=== PATIENT | female | born 1995 | race Caucasian/White ===

== ENCOUNTER → 2016-12-06 | Outpatient (REF) | payer OTHER ==
[~2016-12-06] MED LIST: MOTR200T44 PO; PERC5TAB6 PO; STUACAP PO
== END ==
LOC: M LAB REF 15:04
PROVIDERS: ATTEND Advanced Practice Midwife
DX: Z12.4 Encounter for screening for malignant neoplasm of cervix (principal)

== ENCOUNTER → 2018-09-09 | Outpatient (REF) | payer OTHER ==
[2018-09-09 13:04] LABS: ALBUMIN 4.1 GM/DL (3.2-5.2); ALBUMIN/GLOBULIN RATIO 1.32 (1.00-1.93); ALKALINE PHOSPHATASE 99 U/L (45-117); ALT/SGPT 27 U/L (12-78); ANION GAP 7 MEQ/L (8-16); AST/SGOT 9 U/L (7-37); BILIRUBIN,TOTAL 0.7 MG/DL (0.2-1.0); BLOOD UREA NITROGEN 14 MG/DL (7-18); CALCIUM LEVEL 9.8 MG/DL (8.5-10.1); CARBON DIOXIDE LEVEL 27 MEQ/L (21-32); CHLORIDE LEVEL 105 MEQ/L (98-107); CHOLESTEROL LEVEL 158 MG/DL (<200); CHOLESTEROL RISK RATIO 5.448 (<5); CREATININE FOR GFR 0.74 MG/DL (0.55-1.30); FREE T4 1.46 NG/DL (0.76-1.46); GLOMERULAR FILTRATION RATE > 60.0 (>60); GLUCOSE, FASTING 104 MG/DL (70-100); HDL CHOLESTEROL 29 MG/DL (>40); LDL CHOLESTEROL 96 MG/DL (<100); NON-HDL-C 129 MG/DL; POTASSIUM SERUM 4.1 MEQ/L (3.5-5.1); SODIUM LEVEL 139 MEQ/L (136-145); TOTAL PROTEIN 7.2 GM/DL (6.4-8.2); TRIGLYCERIDES LEVEL 163 MG/DL (<150)
== END ==
LOC: M SFHCADAM 08:03
DX: F32.9 Major depressive disorder, single episode, unspecified (principal); F41.9 Anxiety disorder, unspecified; E66.01 Morbid (severe) obesity due to excess calories; E78.1 Pure hyperglyceridemia
CPT/HCPCS: 84443

== ENCOUNTER → 2018-09-09 | Outpatient (CLI) | payer OTHER | LOC: M ADAMS 10:20 | DX: F32.9 Major depressive disorder, single episode, unspecified (principal); F41.9 Anxiety disorder, unspecified; E66.01 Morbid (severe) obesity due to excess calories; E78.1 Pure hyperglyceridemia ==

== ENCOUNTER → 2018-11-19 | Outpatient (REF) | payer OTHER ==
[~2018-11-19] MED LIST changes: +PERC5TAB12 PO; -PERC5TAB6 PO
--- NOTE | 2018-11-20 04:07 | REP ---
Clinical: Lumbago Technique: AP, lateral, flexion/extension, bilateral oblique, and coned-down views. Findings: Alignment is maintained. Straightening of normal lordosis may be secondary to positioning versus pain/spasm. The vertebral bodies including transverse process and spinous processes are intact and normal. There is no evidence for acute fracture / compression injury or subluxation. No evidence for spondylolysis or spondylolisthesis. No significant degenerative change is noted. Impression: Essentially normal lumbosacral spine radiograph series. Electronically Signed by Marco A Chaves MD 11/20/2018 03:58 A
== END ==
LOC: M ADAMS 08:48
PROVIDERS: ATTEND Physician Assistant
DX: M54.41 Lumbago with sciatica, right side (principal); G89.29 Other chronic pain

== ENCOUNTER → 2018-11-20 | Outpatient (REF) | payer OTHER | LOC: M SFHCPLAZ 17:20 | PROVIDERS: ATTEND Dermatology | DX: D22.39 Melanocytic nevi of other parts of face (principal); D22.62 Melanocytic nevi of left upper limb, including shoulder ==

== ENCOUNTER → 2018-12-16 | Outpatient (REF) | payer OTHER | LOC: M LAB REF 13:28 | PROVIDERS: ATTEND Advanced Practice Midwife | DX: Z12.4 Encounter for screening for malignant neoplasm of cervix (principal) ==

== ENCOUNTER → 2019-01-06 | Outpatient (REF) | payer OTHER ==
[2019-01-06 14:12] LABS: HEMOGLOBIN A1c 5.9 %
== END ==
LOC: M SFHCADAM 07:43
PROVIDERS: ATTEND Physician Assistant
DX: L83 Acanthosis nigricans (principal)

== ENCOUNTER → 2019-01-07 | Outpatient (CLI) | payer OTHER ==
[~2019-01-07] MED LIST changes: +PROHANCE 279.3MG/ML 15ML VIAL (A9576) As Ordered ONE; +PROHANCE 279.3MG/ML 5ML VIAL (A9576) As Ordered ONE
--- NOTE | 2019-01-07 12:44 | REP ---
MR BRAIN WITHOUT AND WITH CONTRAST: HISTORY: Migraine headaches. CONTRAST: ProHance 20 mL. There are no areas of abnormal signal intensity in the brain. There is no intraparenchymal hemorrhage, infarct, mass, or midline shift. There is no abnormal enhancement. The ventricular system is normal in appearance. There is no extracerebral collection. Mucosal thickening is present in the left sphenoid sinus. IMPRESSION: There is no intracranial lesion. Electronically Signed by Manohar Sanford MD 01/07/2019 01:02 P
== END ==
LOC: M RAD 11:19
PROVIDERS: ATTEND Physician Assistant
DX: G43.709 Chronic migraine without aura, not intractable, without status migrainosus (principal)
CPT/HCPCS: 70553; A9576

== ENCOUNTER → 2019-09-09 | Outpatient (CLI) | payer OTHER ==
[~2019-09-09] MED LIST changes: -PROHANCE 279.3MG/ML 15ML VIAL (A9576) As Ordered ONE; -PROHANCE 279.3MG/ML 5ML VIAL (A9576) As Ordered ONE
--- NOTE | 2019-09-09 11:30 | REP ---
Clinical: Left heel pain. Technique: AP, lateral, bilateral oblique views of the left foot. Findings: Lateral view demonstrates small to moderate calcaneal heal spur. No periarticular or soft tissue calcifications are identified. Remainder examination is normal for age. Impression: Small/moderate calcaneal heal spur. Electronically Signed by Marco A Chaves MD 09/09/2019 11:22 A
== END ==
LOC: M ADAMS 10:52
PROVIDERS: ATTEND Physician Assistant
DX: M72.2 Plantar fascial fibromatosis (principal); M77.32 Calcaneal spur, left foot

== ENCOUNTER → 2019-09-09 | Outpatient (REF) | payer OTHER ==
[2019-09-09 12:53] LABS: ALBUMIN 3.7 GM/DL (3.2-5.2); ALT/SGPT 23 U/L (12-78); BILIRUBIN,TOTAL 0.3 MG/DL (0.2-1.0); BLOOD UREA NITROGEN 12 MG/DL (7-18); CALCIUM LEVEL 9.3 MG/DL (8.5-10.1); CARBON DIOXIDE LEVEL 25 MEQ/L (21-32); CHLORIDE LEVEL 110 MEQ/L (98-107); CHOLESTEROL LEVEL 168 MG/DL (<200); CREATININE FOR GFR 0.68 MG/DL (0.55-1.30); FREE T4 1.14 NG/DL (0.76-1.46); GLOMERULAR FILTRATION RATE > 60.0 (>60); GLUCOSE, FASTING 102 MG/DL (70-100); HDL CHOLESTEROL 35 MG/DL (>40); LDL CHOLESTEROL 97 MG/DL (<100); NON-HDL-C 133 MG/DL; POTASSIUM SERUM 4.1 MEQ/L (3.5-5.1); SODIUM LEVEL 140 MEQ/L (136-145); TOTAL PROTEIN 7.2 GM/DL (6.4-8.2); TRIGLYCERIDES LEVEL 178 MG/DL (<150)
== END ==
LOC: M SFHCADAM 10:44
PROVIDERS: ATTEND Physician Assistant
DX: M72.2 Plantar fascial fibromatosis (principal); F41.1 Generalized anxiety disorder; E78.1 Pure hyperglyceridemia; E66.01 Morbid (severe) obesity due to excess calories

== ENCOUNTER → 2020-03-20 | Outpatient (CLI) | payer OTHER ==
[2020-03-20 09:18] LABS: FREE T4 1.31 NG/DL (0.76-1.46); THYROID STIMULATING HORMONE 1.21 uIU/ML (0.358-3.740)
[2020-03-20 09:19] LABS: HEMOGLOBIN A1c 7.5 %
== END ==
LOC: M LAB 07:56
PROVIDERS: ATTEND Advanced Practice Midwife
DX: R63.5 Abnormal weight gain (principal)

== ENCOUNTER → 2020-10-19 | Outpatient (REF) | payer OTHER ==
[2020-10-20 13:40] LABS: HEMOGLOBIN A1c 6.3 %
[2020-10-20 13:51] LABS: ALBUMIN 3.5 GM/DL (3.2-5.2); ALT/SGPT 33 U/L (12-78); BILIRUBIN,TOTAL 0.2 MG/DL (0.2-1.0); BLOOD UREA NITROGEN 12 MG/DL (7-18); CALCIUM LEVEL 9.2 MG/DL (8.5-10.1); CARBON DIOXIDE LEVEL 27 MEQ/L (21-32); CHLORIDE LEVEL 105 MEQ/L (98-107); CREATININE FOR GFR 0.79 MG/DL (0.55-1.30); GLOMERULAR FILTRATION RATE > 60.0 (>60); GLUCOSE, FASTING 99 MG/DL (70-100); POTASSIUM SERUM 5.3 MEQ/L (3.5-5.1); SODIUM LEVEL 138 MEQ/L (136-145)
[2020-10-20 14:28] LABS: MAU/CREAT RATIO 307.1 MCG/MG (0.0-30.0)
== END ==
LOC: M SFHCADAM 15:06
PROVIDERS: ATTEND Physician Assistant
DX: I10 Essential (primary) hypertension (principal); E11.9 Type 2 diabetes mellitus without complications

== ENCOUNTER → 2021-07-11 | Outpatient (REF) | payer OTHER ==
[~2021-07-11] MED LIST changes: +ACET-897 PO; +CYCL-707; +FLUTISP; +IBUP-1857 PO; +IBUP80TA PO; +LEXA1TAB2 PO; +LISI10TA22; +LORA-674; +STEG15TA PO
[2021-07-11 14:47] LABS: MALB URINE SIEMENS 46.5 MG/L
[2021-07-11 15:00] LABS: ALBUMIN 3.6 GM/DL (3.2-5.2); ALT/SGPT 34 U/L (12-78); BILIRUBIN,TOTAL 0.4 MG/DL (0.2-1.0); BLOOD UREA NITROGEN 10 MG/DL (7-18); CARBON DIOXIDE LEVEL 26 MEQ/L (21-32); CHLORIDE LEVEL 107 MEQ/L (98-107); CHOLESTEROL LEVEL 179 MG/DL (<200); CREATININE FOR GFR 0.71 MG/DL (0.55-1.30); FREE T4 1.08 NG/DL (0.76-1.46); GLOMERULAR FILTRATION RATE > 60.0 (>60); GLUCOSE, FASTING 93 MG/DL (70-100); HDL CHOLESTEROL 38 MG/DL (>40); LDL CHOLESTEROL 116 MG/DL (<100); NON-HDL-C 141 MG/DL; POTASSIUM SERUM 4.6 MEQ/L (3.5-5.1); SODIUM LEVEL 138 MEQ/L (136-145); THYROID STIMULATING HORMONE 0.925 uIU/ML (0.358-3.740); TRIGLYCERIDES LEVEL 127 MG/DL (<150)
[2021-07-11 15:16] LABS: HEMOGLOBIN A1c 5.8 %
== END ==
LOC: M SFHCADAM 08:17
PROVIDERS: ATTEND Physician Assistant
DX: E11.9 Type 2 diabetes mellitus without complications (principal); E78.1 Pure hyperglyceridemia; E04.9 Nontoxic goiter, unspecified

== ENCOUNTER 2021-07-16 12:27 | Emergency (ER) | payer OTHER ==
[~2021-07-16] VITALS: Ht 157.5 cm; Wt 124.1 kg
[~2021-07-16 12:27] MED LIST changes: -ACET-897 PO; -CYCL-707; -FLUTISP; -IBUP-1857 PO; -IBUP80TA PO; -LEXA1TAB2 PO; -LISI10TA22; -LORA-674; -STEG15TA PO
[2021-07-16] MEDS ORDERED: IBUP-1857 PO (12:43)
[2021-07-16] MEDS ORDERED: LORA-674 (12:43)
[2021-07-16] MEDS ORDERED: CYCL-707 (12:43)
[2021-07-16] MEDS ORDERED: STEG15TA PO (12:43)
[2021-07-16] MEDS ORDERED: LEXA1TAB2 PO (12:43)
[2021-07-16] MEDS ORDERED: LISI10TA22 (12:43)
[2021-07-16] MEDS ORDERED: FLUTISP (12:43)
[2021-07-16] MEDS ORDERED: IBUP80TA PO (14:24)
[2021-07-16] MEDS ORDERED: ACET-897 PO (14:24)
[2021-07-16 14:40] VITALS: BP 124/83
== END 2021-07-16 14:40 | disposition home or self-care (01) ==
LOC: M ED 12:27
DX: M54.5 Low back pain (principal); J30.89 Other allergic rhinitis; F41.9 Anxiety disorder, unspecified; F32.9 Major depressive disorder, single episode, unspecified

== ENCOUNTER → 2021-10-10 | Outpatient (CLI) | payer OTHER ==
[~2021-10-10] MED LIST changes: +ACET-897 PO; +CYCL-707; +FLUTISP INH; +IBUP-1857 PO; +IBUP80TA PO; +LEXA1TAB2 PO; +LISI10TA22 PO; +LORA-674 PO; +STEG15TA PO
== END ==
LOC: M LABSMTC 10:19
PROVIDERS: ATTEND Anesthesiology
DX: Z01.812 Encounter for preprocedural laboratory examination (principal); Z20.822 Contact with and (suspected) exposure to COVID-19

== ENCOUNTER 2021-10-15 06:14 | Day surgery (SDC) | payer OTHER ==
[~2021-10-15] VITALS: Ht 160 cm; Wt 125.6 kg
[~2021-10-15 06:14] MED LIST changes: +LR 1,000 ML IV ONE
--- OUTSIDE RECORDS SUMMARY | 2021-10-15 06:26 | CCD ---
Author Author [facility] Organization [facility] Address Unknown Phone Unavailable Care Team Providers Care Sweeper Operator Highways Name Role Phone Brittany Payne Unavailable PROBLEMS Type Condition ICD9-CM Code KWT20-WK Code Onset Dates Condition S tatus W/U Status Risk SNOMED Code Notes Problem Chronic tension-type headache, not intractable G44 .229 Active confirmed 891986137 Problem Morbid obesity E66.01 Active confirmed 92540 6002 Problem Major depressive disorder, single episode, unspecified F32.9 Active confirmed 29445838 Problem Anxiety disorder, unspecified F41.9 Active confirm ed 09833883 Problem Generalized anxiety disorder F41.1 Active confirme d 82639480 Problem Persistent depressive disorder F34.1 Active confir med 65084486 Problem Panic disorder F41.0 Active confirmed 46655 1005 Problem Acanthosis nigricans L83 Active confirmed 440817555 Problem Daytime somnolence R40.0 Active confirmed 1 73739825368 Problem Chronic migraine G43.709 Active confirmed 37 368914 Problem Non-seasonal allergic rhinitis, unspecified trigger J30.89 Active confirmed 54963782 Problem Essential hypertension I10 Active confirmed 60920386 Problem Lumbago with sciatica, right side M54.41 Active confirmed 117648243 Problem Enlarged thyroid gland E04.9 Active confirmed 2205189 Problem Other chronic pain G89.29 Active confirmed 8 7728753 Problem Hypertriglyceridemia E78.1 Active confirmed 463040380 Problem Seasonal allergic rhinitis, unspecified trigger J3 0.2 Active confirmed 346917257 Problem Depressed mood F32.9 Active confirmed 97351 9004 Problem Chronic fatigue R53.82 Active confirmed 5270 2002 Problem Type 2 diabetes mellitus wit hout complication, without long-term current use of insulin E11.9 Active confirmed 681744856 ALLERGIES No Known Allergies ENCOUNTERS from 1993 to 2021-09-05 Encounter Location Date Provider Diagnosis [facility] [address] [facility] [phone] [place] [address] Jul, Brittany Payne Encounter for other general counseling and advice on contraception Z30.09 IMMUNIZATIONS Vaccine Route Administration Date Status Influenza 18 yrs & older Flublok IM Intramuscular Sep 09, 2019 Administered Depo-Provera 150mg/1mL Medroxy-Progestrone Acetate IM Intram uscular January 12, 2020 Administered Depo-Provera 150mg/1mL Medroxy-Progestrone Acetate IM Intram uscular Oct 19, 2019 Administered SOCIAL HISTORY Tobacco Use: Social History Observation Description Date Details (start date - stop date) Never Smoker Sex Assigned At : Social History Observation Description Sex Assigned At Unknown Education: Question Answer Notes Level of Education: Finished High School Language: Question Answer Notes Languages spoken: Bahamian Domestic Violence: Question Answer Notes Status: Sexual Hx: Question Answer Notes Had sex in the last 12 months (vaginal, oral, or anal)? Yes LMP: depo Have you ever had an STD? No with Men only Use protection? Yes How often? Some of the time Alcohol Screening: Question Answer Notes Did you have a drink containing alcohol in the past year? Ye s Points 1 Interpretation Negative How often did you have six or more drinks on one occas ion in the past year? Never (0 points) How many drinks did you have on a typica l day when you were drinking in the past year? 1 or 2 (0 points) How often did you have a drink containing alcohol in t he past year? Monthly or less (1 point) BMI Care Goal Follow-Up Question Answer Notes Above Normal BMI Follow-Up Dietary management educatio n, guidance, and counseling Tobacco Use: Question Answer Notes Are you a: never smoker never smoker REASON FOR REFERRAL No Information VITAL SIGNS Weight 273 lbs Jul, Weight-kg 123.83 kg Jul, Height 62.5 in Jul, BMI 49.13 kg/m2 Jul, Blood pressure systolic 118 mm Hg Jul, Blood pressure diastolic 78 mm Hg Jul, MEDICATIONS Medication SIG (Take, Route, Frequency, Duration) Notes Start Da te End Date Status Lisinopril 10 MG 1 tablet Orally Once a day for 90 days Active Ibuprofen 400 MG 2 tablet with food or milk as needed Ora lly Three times a day Active Lexapro 20 MG 1 tablet Orally Once a day Active Multivitamin Active Fluticasone Propionate 50 MCG/ACT 1 spray in each nost ril Nasally Once a day for 90 days Aug, Active Steglatro 15 MG 1 tablet Orally Once a day for 90 days Oct, Active Loratadine 10 MG 1 tablet Orally Once a day for 90 days Active Tylenol Extra Strength 500 MG 2 tablet as needed Orally every 6 hrs Active PROCEDURES No Information RESULTS No Results REASON FOR VISIT Annual, Sterilization counseling MEDICAL (GENERAL) HISTORY Type Description Date Medical History Depression/Anxiety Medical History Morbid Obesity Medical History Migraines Medical History Probable JOSIE - referred to [facility] for NPSG - cancelled (sx due to allergies per pt) Medical History Hypertriglyceridemia Medical History Diabetes 03/2020 Medical History HTN Surgical History C section 07/12/2016 Surgical History wisdom tooth removed Hospitalization History childbirth Goals Section No Information Health Concerns No Information MEDICAL EQUIPMENT No Information MENTAL STATUS No Information FUNCTIONAL STATUS No Information ASSESSMENTS Encounter Date Diagnosis Assessment Notes Treatment Notes Treatm ent Clinical Notes Jul, Encounter for other general counseling and advice on contraception (ICD-10 - Z30.09) PLAN OF TREATMENT Next Appt Details 2 Months Reason:annual Provider Name:Brittany Payne, 2021-09-10 5 10:40:00 AM, [address] [place] [phone], [place], [address], Provider Name:Cathy Dutton, 2021-09-26 02:00:00 PM, [address] [place] [address] , [place], [address], Provider Name:Brittany Payne, 6 07:30:00 AM, [address] [place], [place] [id number], [place], [address], Provider Name:Brittany Payne, 5 02:40:00 PM, [address] [facility], , [place], [address], Provider Name:Shawna Harlanmarquez, 2022-01 08:30:00 AM, [address], , [place], [address], Follow Up:2 Monthsannual Insurance Providers Payer Name Payer Address Payer Phone Insured Name Patient Relati onship to Insured Coverage Start Date Coverage End Date [facility] [place] [address] [facility] [phone] [phone] JOSE NANCE self
--- OUTSIDE RECORDS SUMMARY | 2021-10-15 06:26 | CCD ---
Author Author [facility] Organization [facility] Address Unknown Phone Unavailable Care Team Providers Care Hotel Sales Manager Name Role Phone Shawna Moreno Unavailable PROBLEMS Type Condition ICD9-CM Code PWF60-HF Code Onset Dates Condition S tatus W/U Status Risk SNOMED Code Notes Problem Anxiety disorder, unspecified F41.9 Active confirm ed 55591609 Problem Chronic tension-type headache, not intractable G44 .229 Active confirmed 046596011 Problem Persistent depressive disorder F34.1 Active confir med 72996255 Problem Hypertriglyceridemia E78.1 Active confirmed 583182858 Problem Acanthosis nigricans L83 Active confirmed 855765538 Problem Generalized anxiety disorder F41.1 Active confirme d 16945292 Problem Lumbago with sciatica, right side M54.41 Active confirmed 915058577 Problem Other chronic pain G89.29 Active confirmed 8 4320411 Problem Chronic migraine G43.709 Active confirmed 37 513777 Problem Non-seasonal allergic rhinitis, unspecified trigger J30.89 Active confirmed 26761341 Problem Seasonal allergic rhinitis, unspecified trigger J3 0.2 Active confirmed 859557429 Problem Enlarged thyroid gland E04.9 Active confirmed 8940157 Problem Daytime somnolence R40.0 Active confirmed 1 88308707252 Problem Morbid obesity E66.01 Active confirmed 72580 6002 Problem Plantar fascial fibromatosis M72.2 Active confirme d 61122427 Problem Panic disorder F41.0 Active confirmed 93000 1005 Problem Major depressive disorder, single episode, unspecified F32.9 Active confirmed 11482255 Problem Depressed mood F32.9 Active confirmed 18431 9004 Problem Type 2 diabetes mellitus wit hout complication, without long-term current use of insulin E11.9 Active confirmed 820684058 Problem Chronic fatigue R53.82 Active confirmed 5270 2003 Problem Essential hypertension I10 Active confirmed 29982781 ALLERGIES No Known Allergies ENCOUNTERS from 1993 to 2021-10-02 Encounter Location Date Provider Diagnosis [facility] [address] [place] [phone] Sep, Shawna Moreno Plantar fascial fibromatosis M72.2 IMMUNIZATIONS Vaccine Route Administration Date Status Influenza 18 yrs & older Flublok IM Intramuscular Sep 09, 2019 Administered SOCIAL HISTORY Tobacco Use: Social History Observation Description Date Details (start date - stop date) Never Smoker Sex Assigned At : Social History Observation Description Sex Assigned At Unknown Education: Question Answer Notes Level of Education: Finished High School Language: Question Answer Notes Languages spoken: Austrian Domestic Violence: Question Answer Notes Status: Sexual [...] never smoker never smoker REASON FOR REFERRAL from 1993 to 2021-10-02 Reason Continue careforplantar fasc iitis Diagnosis 1 Plantar fascial fibromatosis (M72.2) Referral Organization [facility] Referring Provider First Name Shawna Referring Provider Last Name Josh Referring Provider Specialty Family Medicine Referred Provider Sunny Mistry Referred Provider Specialty Podiatry Referral Priority Routine General Notes [address] 10/02/20 21 11:46:16 AM > faxed VITAL SIGNS No information MEDICATIONS Medication SIG (Take, Route, Frequency, Duration) Notes Start Da te End Date Status Steglatro 15 MG 1 tablet Orally Once a day for 90 days Oct, Active Loratadine 10 MG 1 tablet Orally Once a day for 90 days Active Lexapro 20 MG 1 tablet Orally Once a day Active Fluticasone Propionate 50 MCG/ACT 1 spray in each nost ril Nasally Once a day for 90 days Aug, Active Ibuprofen 400 MG 2 tablet with food or milk as needed Ora lly Three times a day Active Multivitamin Active Tylenol Extra Strength 500 MG 2 tablet as needed Orally every 6 hrs Active Lisinopril 10 MG 1 tablet Orally Once a day for 90 days Active PROCEDURES No Information RESULTS No Results REASON FOR VISIT referral MEDICAL (GENERAL) HISTORY Type Description Date Medical [...] Notes Treatment Notes Treatm ent Clinical Notes Sep, Plantar fascial fibromatosis (ICD-10 - M72.2) PLAN OF TREATMENT Referrals Referral Date Details Continue careforSunny duncan Next Appt Details Provider Name:Brittany Payne, 6 07:30:00 AM, [address] [facility], , [place], [address], Provider Name:Brittany Payne, 5 02:40:00 PM, [address] [facility], , [place], [address], Provider Name:Shawna Moreno, 2022-01 08:30:00 AM, [address], , [place], [address], Insurance Providers Payer Name Payer Address Payer Phone Insured Name Patient Relati onship to Insured Coverage Start Date Coverage End Date [facility] COMMUN[facility] PLAN [facility] [address] [place] [address] [phone] JOSE NANCE
--- OUTSIDE RECORDS SUMMARY | 2021-10-15 06:26 | CCD ---
Author Author [facility] Organization [facility] Address Unknown Phone Unavailable Care Team Providers Care Health Information Provider Name Role Phone Shawna Moreno Unavailable PROBLEMS Type Condition ICD9-CM Code PSB30-RK Code Onset Dates Condition S tatus W/U Status Risk SNOMED Code Notes Problem Chronic tension-type headache, not intractable G44 .229 Active confirmed 060481634 Problem Morbid obesity E66.01 Active confirmed 36939 6002 Problem Major depressive disorder, single episode, unspecified F32.9 Active confirmed 64332431 Problem Anxiety disorder, unspecified F41.9 Active confirm ed 59151048 Problem Generalized anxiety disorder F41.1 Active confirme d 65974932 Problem Persistent depressive disorder F34.1 Active confir med 50123336 Problem Panic disorder F41.0 Active confirmed 80394 1005 Problem Acanthosis nigricans L83 Active confirmed 287705787 Problem Daytime somnolence R40.0 Active confirmed 1 76936055766 Problem Chronic migraine G43.709 Active confirmed 37 495573 Problem Non-seasonal allergic rhinitis, unspecified trigger J30.89 Active confirmed 07804993 Problem Essential hypertension I10 Active confirmed 72768891 Problem Lumbago with sciatica, right side M54.41 Active confirmed 392400661 Problem Enlarged thyroid gland E04.9 Active confirmed 4557336 Problem Other chronic pain G89.29 Active confirmed 8 0087801 Problem Hypertriglyceridemia E78.1 Active confirmed 569878059 Problem Seasonal allergic rhinitis, unspecified trigger J3 0.2 Active confirmed 545856143 Problem Depressed mood F32.9 Active confirmed 02503 9004 Problem Chronic fatigue R53.82 Active confirmed 5270 2002 Problem Type 2 diabetes mellitus wit hout complication, without long-term current use of insulin E11.9 Active confirmed 758948663 ALLERGIES No Known Allergies ENCOUNTERS from 1993 to 2021-07-27 Encounter Location Date Provider Diagnosis [facility] [address] [place] [address] Jul, Shawna Moreno Strain of lumbar region, subsequent enco unter S39.012D IMMUNIZATIONS Vaccine Route Administration Date Status Influenza [...] School Language: Question Answer Notes Languages spoken: Beninese Domestic Violence: Question Answer Notes Status: Sexual [...] FOR REFERRAL No Information VITAL SIGNS Weight 273.6 lbs Jul, Height 62.5 in Jul, BMI 49.24 kg/m2 Jul, Heart Rate 85 /min Jul, Respiratory Rate 18 /min Jul, Temperature 97.8 degrees Fahrenheit 09 Sep, 2021 Oximetry 94 Jul, Blood pressure systolic 130 mm Hg Jul, Blood pressure diastolic 80 mm Hg Jul, MEDICATIONS Medication SIG (Take, Route, Frequency, Duration) Notes Start Da te End Date Status Lisinopril 10 MG 1 tablet Orally Once a day for 90 days Active Fluticasone Propionate 50 MCG/ACT 1 spray in each nost ril Nasally Once a day for 90 days Aug, Active Lexapro 20 MG 1 tablet Orally Once a day Active Ibuprofen 400 MG 2 tablet with food or milk as needed Ora lly Three times a day Active Tylenol Extra Strength 500 MG 2 tablet as needed Orally every 6 hrs Active Steglatro 15 MG 1 tablet Orally Once a day for 90 days Oct, Active Multivitamin Active Loratadine 10 MG 1 tablet Orally Once a day for 90 days Active PROCEDURES No Information RESULTS No Results REASON FOR VISIT back pain-pt was seen at [facility] ed MEDICAL (GENERAL) HISTORY Type Description Date Medical [...] Treatment Notes Treatm ent Clinical Notes Jul, Strain of lumbar region, subsequent enco unter (ICD-10 - S39.012D) continue above - symptoms improving - Plan to refer to PT if persists importance of routine core strengthening/stretchign excercises sicussed PLAN OF TREATMENT Treatment Notes Assessment Notes Clinical Notes Strain of lumbar region, subsequent encounter continue above - symptoms improving - Plan to refer to PT if persistsimportance of routine core strengthening/stretchign excercises sicussed Next Appt Details prn Reason: Provider Name:Cathy Dutton, 2021-08-14 09:00:00 AM, [address] [facility], , [place], [address], Provider Name:Shawna Moreno, 2022-01 08:30:00 AM, [address], , [place], [address], Insurance Providers Payer Name Payer Address Payer Phone Insured Name Patient Relati onship to Insured Coverage Start Date Coverage End Date [facility] [place] [address] [facility] [phone] JOSE NANCE self
--- OUTSIDE RECORDS SUMMARY | 2021-10-15 06:26 | CCD ---
Author Author [facility] Organization [facility] Address Unknown Phone Unavailable Care Team Providers Care Government Affairs Manager Name Role Phone Brittany Payne Unavailable PROBLEMS Type Condition ICD9-CM Code AUP73-QL Code Onset Dates Condition S tatus W/U Status Risk SNOMED Code Notes Problem Chronic tension-type headache, not intractable G44 .229 Active confirmed 570242256 Problem Morbid obesity E66.01 Active confirmed 25338 6002 Problem Major depressive disorder, single episode, unspecified F32.9 Active confirmed 73141754 Problem Anxiety disorder, unspecified F41.9 Active confirm ed 35488722 Problem Generalized anxiety disorder F41.1 Active confirme d 92251243 Problem Persistent depressive disorder F34.1 Active confir med 59365855 Problem Panic disorder F41.0 Active confirmed 32811 1005 Problem Acanthosis nigricans L83 Active confirmed 434842828 Problem Daytime somnolence R40.0 Active confirmed 1 19377795160 Problem Chronic migraine G43.709 Active confirmed 37 367725 Problem Non-seasonal allergic rhinitis, unspecified trigger J30.89 Active confirmed 56289553 Problem Essential hypertension I10 Active confirmed 23148571 Problem Lumbago with sciatica, right side M54.41 Active confirmed 976641521 Problem Enlarged thyroid gland E04.9 Active confirmed 7997407 Problem Other chronic pain G89.29 Active confirmed 8 2882786 Problem Hypertriglyceridemia E78.1 Active confirmed 021849586 Problem Seasonal allergic rhinitis, unspecified trigger J3 0.2 Active confirmed 449166204 Problem Depressed mood F32.9 Active confirmed 07801 9004 Problem Chronic fatigue R53.82 Active confirmed 5270 2002 Problem Type 2 diabetes mellitus wit hout complication, without long-term current use of insulin E11.9 Active confirmed 847044362 ALLERGIES No Known Allergies ENCOUNTERS from 1993 to 2021-09-04 Encounter Location Date Provider Diagnosis [facility] [address] [facility] [phone] [place] [address] Aug, Brittany Payne IMMUNIZATIONS Vaccine Route Administration Date Status Influenza [...] School Language: Question Answer Notes Languages spoken: Kuwaiti Domestic Violence: Question Answer Notes Status: Sexual [...] REASON FOR REFERRAL No Information VITAL SIGNS No information MEDICATIONS Medication SIG [...] Information RESULTS No Results REASON FOR VISIT 10/15/21 SURG [facility] MEDICAL (GENERAL) HISTORY Type Description Date Medical [...] No Information FUNCTIONAL STATUS No Information ASSESSMENTS No Information PLAN OF TREATMENT Next Appt Details Provider Name:Brittany Payne, 2021-09-10 5 10:40:00 AM, [address] [place] [address] , [place], [address], Provider Name:Cathy Dutton, 2021-09-26 02:00:00 PM, [address] [place] [address] , [place], [address], Provider Name:Brittany Payne, 6 07:30:00 AM, [address] [place] [address] , [place], [address], Provider Name:Brittany Payne, 5 02:40:00 PM, [address] [place] [address] , [place], [address], Provider Name:Shawna Moreno, 2022-01 08:30:00 AM, [address], , [place], [address], Insurance Providers Payer Name Payer Address Payer Phone Insured Name Patient Relati onship to Insured Coverage Start Date Coverage End Date [employer] PLAN [facility] [place] [address] [facility] [address] JOSE NANCE self
--- OUTSIDE RECORDS SUMMARY | 2021-10-15 06:26 | CCD ---
Author Author [facility] Organization [facility] Address Unknown Phone Unavailable Care Team Providers Care Snaker Tractor Driver Name Role Phone Cathy Dutton Unavailable PROBLEMS Type Condition ICD9-CM Code IKE37-DT Code Onset Dates Condition S tatus W/U Status Risk SNOMED Code Notes Problem Chronic tension-type headache, not intractable G44 .229 Active confirmed 012136662 Problem Morbid obesity E66.01 Active confirmed 34514 6002 Problem Major depressive disorder, single episode, unspecified F32.9 Active confirmed 97176531 Problem Anxiety disorder, unspecified F41.9 Active confirm ed 18807011 Problem Generalized anxiety disorder F41.1 Active confirme d 24501308 Problem Persistent depressive disorder F34.1 Active confir med 98818150 Problem Panic disorder F41.0 Active confirmed 99044 1005 Problem Acanthosis nigricans L83 Active confirmed 754573390 Problem Daytime somnolence R40.0 Active confirmed 1 06117378135 Problem Chronic migraine G43.709 Active confirmed 37 118731 Problem Non-seasonal allergic rhinitis, unspecified trigger J30.89 Active confirmed 05166306 Problem Essential hypertension I10 Active confirmed 73960611 Problem Lumbago with sciatica, right side M54.41 Active confirmed 977250608 Problem Enlarged thyroid gland E04.9 Active confirmed 8834290 Problem Other chronic pain G89.29 Active confirmed 8 1515708 Problem Hypertriglyceridemia E78.1 Active confirmed 204846832 Problem Seasonal allergic rhinitis, unspecified trigger J3 0.2 Active confirmed 750028084 Problem Depressed mood F32.9 Active confirmed 68837 9004 Problem Chronic fatigue R53.82 Active confirmed 5270 2002 Problem Type 2 diabetes mellitus wit hout complication, without long-term current use of insulin E11.9 Active confirmed 585254114 ALLERGIES No Known Allergies ENCOUNTERS from 1993 to 2021-09-04 Encounter Location Date Provider Diagnosis [facility] [address] [facility] [phone] [place] [address] Aug, [facility] IMMUNIZATIONS Vaccine Route Administration Date Status Influenza [...] School Language: Question Answer Notes Languages spoken: Dominican Domestic Violence: Question Answer Notes Status: Sexual [...] Information RESULTS No Results REASON FOR VISIT SURGERY * MEDICAL (GENERAL) HISTORY Type Description Date Medical [...] Provider Name:Brittany Payne, 2021-09-10 5 10:40:00 AM, [address] [place] [address] , [place], [address], Provider Name:Cathy Dutton, 2021-09-26 02:00:00 PM, [address] [place] [address] , [place], [address], Provider Name:Brittany Payne, 6 07:30:00 AM, [address] [place] [address] , [place], [address], Provider Name:Brittany Payne, 5 02:40:00 PM, [address] [place] [address] , [place], [address], Provider Name:Shawna Moreno, 2022-01 08:30:00 AM, [address], , [place], [address], Insurance Providers Payer Name Payer Address Payer Phone Insured Name Patient Relati onship to Insured Coverage Start Date Coverage End Date [facility] [address] [facility] [phone] JOSE NANCE self
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
--- OUTSIDE RECORDS SUMMARY | 2021-10-15 06:27 | CCD ---
Author Author [facility] Organization [facility] Address Unknown Phone Unavailable Care Team Providers Care Cma Or Lpn Name Role Phone Keyur CARO MD Unavailable Unavailable Keyur CARO MD Unavailable Unavailable Keyur CARO MD Unavailable Unavailable Keyur CARO MD Unavailable Unavailable Keyur CARO MD Unavailable Unavailable Keyur CARO MD Unavailable Unavailable Keyur CARO MD Unavailable Unavailable Keyur CARO MD Unavailable Unavailable Keyur CARO MD Unavailable Unavailable Keyur CARO MD Unavailable Unavailable Keyur CARO MD Unavailable Unavailable Keyur CARO MD Unavailable Unavailable Keyur CARO MD Unavailable Unavailable Keyur CARO MD Unavailable Unavailable Keyur CARO MD Unavailable Unavailable Keyur CARO MD Unavailable Unavailable Keyur CARO MD Unavailable Unavailable Keyur CARO MD Unavailable Unavailable Keyur CARO MD Unavailable Unavailable Keyur CARO MD Unavailable Unavailable Keyur CARO MD Unavailable Unavailable Keyur CARO MD Unavailable Unavailable Keyur CARO MD Unavailable Unavailable Keyur CARO MD Unavailable Unavailable CHROSTOWSKI, FELTON MD Unavailable Unavailable CHROSTOWSKI, FELTON MD Unavailable Unavailable CHROSTOWSKI, FELTON MD Unavailable Unavailable CHROSTOWSKI, FELTON MD Unavailable Unavailable CHROSTOWSKI, FELTON MD Unavailable Unavailable CHROSTOWSKI, FELTON MD Unavailable Unavailable CHROSTOWSKI, FELTON MD Unavailable Unavailable CHROSTOWSKI, FELTON MD Unavailable Unavailable CHROSTOWSKI, FELTON MD Unavailable Unavailable CHROSTOWSKI, FELTON MD Unavailable Unavailable CHROSTOWSKI, FELTON MD Unavailable Unavailable CHROSTOWSKI, FELTON MD Unavailable Unavailable CHROSTOWSKI, FELTON MD Unavailable Unavailable CHROSTOWSKI, FELTON MD Unavailable Unavailable CHROSTOWSKI, FELTON MD Unavailable Unavailable CHROSTOWSKI, FELTON MD Unavailable Unavailable CHROSTOWSKI, FELTON MD Unavailable Unavailable CHROSTOWSKI, FELTON MD Unavailable Unavailable CHROSTOWSKI, FELTON MD Unavailable Unavailable CHROSTOWSKI, FELTON MD Unavailable Unavailable CHROSTOWSKI, FELTON MD Unavailable Unavailable CHROSTOWSKI, FELTON MD Unavailable Unavailable CHROSTOWSKI, FELTON MD Unavailable Unavailable CHROSTOWSKI, FELTON MD Unavailable Unavailable CHROSTOWSKI, FELTON MD Unavailable Unavailable CHROSTOWSKI, FELTON MD Unavailable Unavailable CHROSTOWSKI, FELTON MD Unavailable Unavailable CHROSTOWSKI, FELTON MD Unavailable Unavailable CHROSTOWSKI, FELTON MD Unavailable Unavailable CHROSTOWSKI, FELTON MD Unavailable Unavailable CHROSTOWSKI, FELTON MD Unavailable Unavailable CHROSTOWSKI, FELTON MD Unavailable Unavailable CHROSTOWSKI, FELTON MD Unavailable Unavailable CHROSTOWSKI, FELTON MD Unavailable Unavailable CHROSTOWSKI, FELTON MD Unavailable Unavailable CHROSTOWSKI, FELTON MD Unavailable Unavailable CHROSTOWSKI, FELTON MD Unavailable Unavailable CHROSTOWSKI, FELTON MD Unavailable Unavailable CHROSTOWSKI, FELTON MD Unavailable Unavailable Re-disclosure Warning The records that you are about to access may contain information from federally-assisted alcohol or drug abuse programs. If such information is present, then the following federally mandated warning applies: This information has been disclosed to you from records protected by federal confidentiality rules (42 CFR part 2). The federal rules prohibit you from making any further disclosure of this information unless further disclosure is expressly permitted by the written consent of the person to whom it pertains or as otherwise permitted by 42 CFR part 2. A general authorization for the release of medical or other information is NOT sufficient for this purpose. The Federal rules restrict any use of the information to criminally investigate or prosecute any alcohol or drug abuse patient.The records that you are about to access may contain highly sensitive health information, the redisclosure of which is protected by Article 27-F of the [facility] Public Health law. If you continue you may have access to information: Regarding HIV / AIDS; Provided by facilities licensed or operated by the [facility] Office of Mental Health; or Provided by the [facility] Office for People With Developmental Disabilities. If such information is present, then the following [facility] mandated warning applies: This information has been disclosed to you from confidential records which are protected by state law. State law prohibits you from making any further disclosure of this information without the specific written consent of the person to whom it pertains, or as otherwise permitted by law. Any unauthorized further disclosure in violation of state law may result in a fine or longterm sentence or both. A general authorization for the release of medical or other information is NOT sufficient authorization for further disc losure. Family History Family Member Name Family Member Gender Family Member Status Date o f Status Description Data Source(s) Unknown Unknown Problem MEDENT ([facility], ) Encounters Encounter Providers Location Date Indications Data Source(s ) Unknown [address] [facility] [address] [address] 09/28/2021 12:00:00 AM EST eCW1 ([facility]) Unknown [address] [facility] [address] [place] [address] 09/04/2021 12:00:00 AM EDT eCW1 ([facility]) Unknown [address] [facility] [address] [address] 09/03/2021 12:00:00 AM EDT eCW1 ([facility]) Outpatient [address] [facility] [place] [address] 08/14/2021 12:00:00 AM EDT eCW1 ([facility]) Outpatient [address] [facility] [place] [address] 07/19/2021 12:00:00 AM EDT eCW1 ([facility]) Outpatient Attender: ANDREA CARO MD 07/13 07:46:38 AM EDT - 07/13/2021 08:39:03 AM EDT DocuTap ([facility] ) [place] [address] [facility] [place] [address] 07/11/2021 12:00:00 AM EDT eCW1 ([facility]) Outpatient [address] [facility] [place] [address] 07/11/2021 12:00:00 AM EDT eCW1 ([facility]) Unknown [address] [facility] [place] [address] 06/20/2021 12:00:00 AM EDT eCW1 ([facility]) Unknown [address] [facility] [place] [address] 05/14/2021 12:00:00 AM EDT eCW1 ([facility]) Unknown [address] [facility] [place] [address] 03/29/2021 12:00:00 AM EDT eCW1 ([facility]) Unknown [address] [facility] [place] [address] 03/08/2021 12:00:00 AM EDT eCW1 ([facility]) Outpatient [address] [facility] [place] [address] 11/30/2020 12:00:00 AM EST eCW1 ([facility]) Unknown [address] [facility] [place] [address] 11/14/2020 12:00:00 AM EST eCW1 ([facility]) Unknown [address] [facility] [place] [address] 11/02/2020 12:00:00 AM EST eCW1 ([facility]) Outpatient [address] [facility] [place] [address] 10/19/2020 12:00:00 AM EST eCW1 ([facility]) Unknown [address] [facility] [place] [address] 10/18/2020 12:00:00 AM EST eCW1 ([facility]) Unknown [address] [facility] [place] [address] 10/03/2020 12:00:00 AM EST eCW1 ([facility]) Unknown [address] [facility] [place] [address] 09/26/2020 12:00:00 AM EST eCW1 ([facility]) Outpatient Attender: FELTON MARTINEZ MD Main Office 09/12/2020 12:45:00 PM EST MEDENT ([facility]) Immunizations Vaccine Date Status Description Data Source(s) COVID-19 VACCINE [employer] 08/16/2021 12:00:00 AM EDT completed [facility] Vaccine Series Complete: YESThis Data wa s Submitted to [facility] Via [employer]. COVID-19 VACCINE Pfizer 07/26/2021 12:00:00 AM EDT completed [facility] Vaccine Series Complete: NOThis Data was Submitted to [facility] Via [employer]. Medications Medication Brand Name Start Date Product Form Dose Route Admi nistrative Instructions Pharmacy Instructions Status Indications Reaction Description Data Source(s) 15 mg 07/16/2021 12:00:00 AM EDT tablet 90 TAKE ONE TABLET BY MOUTH EVERY DAY TAKE ONE TABLET BY MOUTH EVERY DAY SOLD: 07/17/2021 [facility] 800 mg 07/16/2021 12:00:00 AM EDT tablet 30 TAKE ONE TABLET BY MOUTH EVERY 8 HOURS NEEDED FOR PAIN TAKE ONE TABLET BY MOUTH EVERY 8 HOURS A S NEEDED FOR PAIN SOLD: 07/17/2021 [facility] Cyclobenzaprine hydrochloride 10 MG Oral Tablet CYCLOBENZAPR INE HCL 07/13/2021 12:00:00 AM EDT tablet 9 TAKE ONE TABLET BY MOUTH THREE TIMES A DAY NEEDED FOR 3 DAYS TAKE ONE TABLET BY MOUTH THREE TIMES A DAY NEEDED F OR 3 DAYS SOLD: 07/13/2021 [facility] Fluticasone propionate 0.05 MG/ACTUAT Metered Dose Syed al Simms 50 mcg/actuation FLUTICASONE PROPIONATE 07/12/2021 12:00:00 AM EDT spray,suspension 16 SPRAY 1 SPRAY IN EACH NOSTRIL ONCE DAILY - SHOULD LAST 60 DAYS SPRAY 1 SPRAY IN EACH NOSTRIL ONCE DAILY - SHOULD LAST 60 DAYS SOLD: 07/13/2021 [facility] 10 mg 07/11/2021 12:00:00 AM EDT tablet 90 TAKE ONE TABLET BY MOUTH EVERY DAY TAKE ONE TABLET BY MOUTH EVERY DAY SOLD: 07/13/2021 [facility] 10 mg 07/11/2021 12:00:00 AM EDT tablet 90 TAKE ONE TABLET BY MOUTH EVERY DAY TAKE ONE TABLET BY MOUTH EVERY DAY SOLD: 10/10/2021 [facility] 15 mg 06/21/2021 12:00:00 AM EDT tablet 30 TAKE ONE TABLET BY MOUTH EVERY DAY TAKE ONE TABLET BY MOUTH EVERY DAY SOLD: 06/21/2021 [facility] 10 mg 05/15/2021 12:00:00 AM EDT tablet 30 TAKE ONE TABLET BY MOUTH EVERY DAY TAKE ONE TABLET BY MOUTH EVERY DAY SOLD: 05/16/2021 [facility] 10 mg 05/15/2021 12:00:00 AM EDT tablet 30 TAKE ONE TABLET BY MOUTH EVERY DAY TAKE ONE TABLET BY MOUTH EVERY DAY SOLD: 06/11/2021 [facility] 10 mg 04/30/2021 12:00:00 AM EDT tablet 30 TAKE ONE TABLET BY MOUTH ONCE A DAY TAKE ONE TABLET BY MOUTH ONCE A DAY SOLD: 07/13/2021 [facility] 10 mg 04/30/2021 12:00:00 AM EDT tablet 30 TAKE ONE TABLET BY MOUTH ONCE A DAY TAKE ONE TABLET BY MOUTH ONCE A DAY SOLD: 05/03/2021 [facility] Escitalopram 20 MG Oral Tablet ESCITALOPRAM OXALATE 04/30/2021 1 2:00:00 AM EDT tablet 90 TAKE ONE TABLET BY MOUTH ONCE DA OSCAR TAKE ONE TABLET BY MOUTH ONCE DAILY SOLD: 05/03/2021 [facility] 10 mg 04/30/2021 12:00:00 AM EDT tablet 30 TAKE ONE TABLET BY MOUTH ONCE A DAY TAKE ONE TABLET BY MOUTH ONCE A DAY SOLD: 08/29/2021 [facility] 10 mg 04/30/2021 12:00:00 AM EDT tablet 30 TAKE ONE TABLET BY MOUTH ONCE A DAY TAKE ONE TABLET BY MOUTH ONCE A DAY SOLD: 06/11/2021 [facility] Escitalopram 20 MG Oral Tablet ESCITALOPRAM OXALATE 04/30/2021 1 2:00:00 AM EDT tablet 90 TAKE ONE TABLET BY MOUTH ONCE DA OSCAR TAKE ONE TABLET BY MOUTH ONCE DAILY SOLD: 08/03/2021 [facility] 10 mg 04/30/2021 12:00:00 AM EDT tablet 30 TAKE ONE TABLET BY MOUTH ONCE A DAY TAKE ONE TABLET BY MOUTH ONCE A DAY SOLD: 10/10/2021 [facility] Lillow 28 Day Pack 0.15-0.03 mg LEVONORGESTREL/ETHIN.ESTRADI OL 03/10/2021 12:00:00 AM EDT tablet 84 TAKE ONE TABLET BY MOUTH EVERY DAY TAKE ONE TABLET BY MOUTH EVERY DAY SOLD: 03/11/2021 [facility] 15 mg 11/10/2020 12:00:00 AM EST tablet 30 TAKE ONE TABLET BY MOUTH EVERY DAY TAKE ONE TABLET BY MOUTH EVERY DAY SOLD: 05/16/2021 [facility] 15 mg 11/10/2020 12:00:00 AM EST tablet 30 TAKE ONE TABLET BY MOUTH EVERY DAY TAKE ONE TABLET BY MOUTH EVERY DAY SOLD: 03/08/2021 [facility] 15 mg 11/10/2020 12:00:00 AM EST tablet 30 TAKE ONE TABLET BY MOUTH EVERY DAY TAKE ONE TABLET BY MOUTH EVERY DAY SOLD: 11/20/2020 [facility] 15 mg 11/10/2020 12:00:00 AM EST tablet 30 TAKE ONE TABLET BY MOUTH EVERY DAY TAKE ONE TABLET BY MOUTH EVERY DAY SOLD: 04/19/2021 [facility] 15 mg 11/10/2020 12:00:00 AM EST tablet 30 TAKE ONE TABLET BY MOUTH EVERY DAY TAKE ONE TABLET BY MOUTH EVERY DAY SOLD: 02/08/2021 [facility] 15 mg 11/10/2020 12:00:00 AM EST tablet 30 TAKE ONE TABLET BY MOUTH EVERY DAY TAKE ONE TABLET BY MOUTH EVERY DAY SOLD: 12/28/2020 [facility] 5 mg 11/07/2020 12:00:00 AM EST tablet 30 TAKE ONE TABLET BY MOUTH EVERY DAY TAKE ONE TABLET BY MOUTH EVERY DAY SOLD: 11/09/2020 [facility] 10 mg 10/20/2020 12:00:00 AM EST tablet 30 TAKE ONE TABLET BY MOUTH EVERY DAY TAKE ONE TABLET BY MOUTH EVERY DAY SOLD: 03/08/2021 [facility] 10 mg 10/20/2020 12:00:00 AM EST tablet 30 TAKE ONE TABLET BY MOUTH EVERY DAY TAKE ONE TABLET BY MOUTH EVERY DAY SOLD: 11/26/2020 [facility] 50 mcg/actuation 10/20/2020 12:00:00 AM EST spray,suspension 16 SPRAY 1 SPRAY IN EACH NOSTRIL ONCE DAILY - SHOULD LAST 60 DAYS SPRAY 1 SPRAY IN EACH NOSTRIL ONCE DAILY - SHOULD LAST 60 DAYS SOLD: 10/21/2020 [facility] 10 mg 10/20/2020 12:00:00 AM EST tablet 30 TAKE ONE TABLET BY MOUTH EVERY DAY TAKE ONE TABLET BY MOUTH EVERY DAY SOLD: 10/20/2020 [facility] 10 mg 10/20/2020 12:00:00 AM EST tablet 30 TAKE ONE TABLET BY MOUTH EVERY DAY TAKE ONE TABLET BY MOUTH EVERY DAY SOLD: 01/28/2021 [facility] 10 mg 10/20/2020 12:00:00 AM EST tablet 30 TAKE ONE TABLET BY MOUTH EVERY DAY TAKE ONE TABLET BY MOUTH EVERY DAY SOLD: 04/10/2021 [facility] 10 mg 10/20/2020 12:00:00 AM EST tablet 30 TAKE ONE TABLET BY MOUTH EVERY DAY TAKE ONE TABLET BY MOUTH EVERY DAY SOLD: 12/28/2020 [facility] Steglatro 15 MG Steglatro 15 MG 10/19/2020 12:00:00 AM EST 1.0 { tablet} active Steglatro 15 MG eCW1 ([facility]) Steglatro 5 MG Steglatro 5 MG 10/19/2020 12:00:00 AM EST 1.0 {ta blet} active Steglatro 5 MG eCW1 ([facility]) Lisinopril 10 MG Oral Tablet Lisinopril 10 MG 10/19/2020 12:00:00 A M EST 1.0 {tablet} active Lisinopril 10 MG eCW1 ( [facility]) Steglatro 15 MG Steglatro 15 MG 10/19/2020 12:00:00 AM EST 1.0 { tablet} active Steglatro 15 MG eCW1 ([facility]) Lisinopril 10 MG Oral Tablet Lisinopril 10 MG 10/19/2020 12:00:00 A M EST 1.0 {tablet} active Lisinopril 10 MG eCW1 ( [facility]) Steglatro 15 MG Steglatro 15 MG 10/19/2020 12:00:00 AM EST 1.0 { tablet} active Steglatro 15 MG eCW1 ([facility]) Steglatro 15 MG Steglatro 15 MG 10/19/2020 12:00:00 AM EST 1.0 { tablet} active Steglatro 15 MG eCW1 ([facility]) Steglatro 15 MG Steglatro 15 MG 10/19/2020 12:00:00 AM EST 1.0 { tablet} active Steglatro 15 MG eCW1 ([facility]) Steglatro 15 MG Steglatro 15 MG 10/19/2020 12:00:00 AM EST 1.0 { tablet} active Steglatro 15 MG eCW1 ([facility]) Lisinopril 10 MG Oral Tablet Lisinopril 10 MG 10/19/2020 12:00:00 A M EST 1.0 {tablet} active Lisinopril 10 MG eCW1 ( [facility]) Steglatro 15 MG Steglatro 15 MG 10/19/2020 12:00:00 AM EST 1.0 { tablet} active Steglatro 15 MG eCW1 ([facility]) Steglatro 15 MG Steglatro 15 MG 10/19/2020 12:00:00 AM EST 1.0 { tablet} active Steglatro 15 MG eCW1 ([facility]) Steglatro 15 MG Steglatro 15 MG 10/19/2020 12:00:00 AM EST 1.0 { tablet} active Steglatro 15 MG eCW1 ([facility]) Steglatro 15 MG Steglatro 15 MG 10/19/2020 12:00:00 AM EST 1.0 { tablet} active Steglatro 15 MG eCW1 ([facility]) Steglatro 5 MG Steglatro 5 MG 10/19/2020 12:00:00 AM EST 1.0 {ta blet} active Steglatro 5 MG eCW1 ([facility]) Lisinopril 10 MG Oral Tablet Lisinopril 10 MG 10/19/2020 12:00:00 A M EST 1.0 {tablet} active Lisinopril 10 MG eCW1 ( [facility]) Steglatro 15 MG Steglatro 15 MG 10/19/2020 12:00:00 AM EST 1.0 { tablet} active Steglatro 15 MG eCW1 ([facility]) Lisinopril 10 MG Oral Tablet Lisinopril 10 MG 10/19/2020 12:00:00 A M EST 1.0 {tablet} active Lisinopril 10 MG eCW1 ( [facility]) Lisinopril 10 MG Oral Tablet Lisinopril 10 MG 10/19/2020 12:00:00 A M EST 1.0 {tablet} active Lisinopril 10 MG eCW1 ( [facility]) Steglatro 5 MG Steglatro 5 MG 10/19/2020 12:00:00 AM EST 1.0 {ta blet} active Steglatro 5 MG eCW1 ([facility]) Steglatro 15 MG Steglatro 15 MG 10/19/2020 12:00:00 AM EST 1.0 { tablet} active Steglatro 15 MG eCW1 ([facility]) Steglatro 5 MG Steglatro 5 MG 10/19/2020 12:00:00 AM EST 1.0 {ta blet} active Steglatro 5 MG eCW1 ([facility]) Lisinopril 10 MG Oral Tablet Lisinopril 10 MG 10/19/2020 12:00:00 A M EST 1.0 {tablet} active Lisinopril 10 MG eCW1 ( [facility]) Steglatro 15 MG Steglatro 15 MG 10/19/2020 12:00:00 AM EST 1.0 { tablet} active Steglatro 15 MG eCW1 ([facility]) Steglatro 5 MG Steglatro 5 MG 10/19/2020 12:00:00 AM EST 1.0 {ta blet} active Steglatro 5 MG eCW1 ([facility]) Steglatro 15 MG Steglatro 15 MG 10/19/2020 12:00:00 AM EST 1.0 { tablet} active Steglatro 15 MG eCW1 ([facility]) Steglatro 5 MG Steglatro 5 MG 10/19/2020 12:00:00 AM EST 1.0 {ta blet} active Steglatro 5 MG eCW1 ([facility]) Steglatro 15 MG Steglatro 15 MG 10/19/2020 12:00:00 AM EST 1.0 { tablet} active Steglatro 15 MG eCW1 ([facility]) Steglatro 15 MG Steglatro 15 MG 10/19/2020 12:00:00 AM EST 1.0 { tablet} active Steglatro 15 MG eCW1 ([facility]) Steglatro 5 MG Steglatro 5 MG 10/19/2020 12:00:00 AM EST 1.0 {ta blet} active Steglatro 5 MG eCW1 ([facility]) Steglatro 5 MG Steglatro 5 MG 10/19/2020 12:00:00 AM EST 1.0 {ta blet} active Steglatro 5 MG eCW1 ([facility]) Steglatro 5 MG Steglatro 5 MG 10/19/2020 12:00:00 AM EST 1.0 {ta blet} active Steglatro 5 MG eCW1 ([facility]) Escitalopram 20 MG Oral Tablet ESCITALOPRAM OXALATE 10/04/2020 1 2:00:00 AM EST tablet 90 TAKE ONE TABLET BY MOUTH EVERY D AY TAKE ONE TABLET BY MOUTH EVERY DAY SOLD: 10/10/2020 [facility] Escitalopram 20 MG Oral Tablet ESCITALOPRAM OXALATE 10/04/2020 1 2:00:00 AM EST tablet 30 TAKE ONE TABLET BY MOUTH EVERY D AY TAKE ONE TABLET BY MOUTH EVERY DAY SOLD: 03/29/2021 [facility] Escitalopram 20 MG Oral Tablet ESCITALOPRAM OXALATE 10/04/2020 1 2:00:00 AM EST tablet 30 TAKE ONE TABLET BY MOUTH EVERY D AY TAKE ONE TABLET BY MOUTH EVERY DAY SOLD: 01/22/2021 [facility] Escitalopram 20 MG Oral Tablet ESCITALOPRAM OXALATE 10/04/2020 1 2:00:00 AM EST tablet 30 TAKE ONE TABLET BY MOUTH EVERY D AY TAKE ONE TABLET BY MOUTH EVERY DAY SOLD: 02/25/2021 [facility] 10 mg 09/27/2020 12:00:00 AM EST tablet 30 TAKE ONE TABLET BY MOUTH EVERY DAY TAKE ONE TABLET BY MOUTH EVERY DAY SOLD: 01/22/2021 [facility] 10 mg 09/27/2020 12:00:00 AM EST tablet 30 TAKE ONE TABLET BY MOUTH EVERY DAY TAKE ONE TABLET BY MOUTH EVERY DAY SOLD: 12/05/2020 [facility] 10 mg 09/27/2020 12:00:00 AM EST tablet 30 TAKE ONE TABLET BY MOUTH EVERY DAY TAKE ONE TABLET BY MOUTH EVERY DAY SOLD: 09/28/2020 [facility] 10 mg 09/27/2020 12:00:00 AM EST tablet 30 TAKE ONE TABLET BY MOUTH EVERY DAY TAKE ONE TABLET BY MOUTH EVERY DAY SOLD: 02/25/2021 [facility] 10 mg 09/27/2020 12:00:00 AM EST tablet 30 TAKE ONE TABLET BY MOUTH EVERY DAY TAKE ONE TABLET BY MOUTH EVERY DAY SOLD: 03/29/2021 [facility] 10 mg 09/27/2020 12:00:00 AM EST tablet 30 TAKE ONE TABLET BY MOUTH EVERY DAY TAKE ONE TABLET BY MOUTH EVERY DAY SOLD: 11/01/2020 [facility] 28 Day Pack 0.15-0.03 mg LEVONORGESTREL/ETHINYL ESTRA DIOL 08/24/2020 12:00:00 AM EDT tablet 84 TAKE ONE TABLET BY MOUTH EVERY DAY TAKE ONE TABLET BY MOUTH EVERY DAY SOLD: 12/14/2020 [facility] L[facility] 28 Day Pack 0.15-0.03 mg LEVONORGESTREL/ETHINYL ESTRA DIOL 08/24/2020 12:00:00 AM EDT tablet 84 TAKE ONE TABLET BY MOUTH EVERY DAY TAKE ONE TABLET BY MOUTH EVERY DAY SOLD: 08/25/2020 [facility] Escitalopram 20 MG Oral Tablet ESCITALOPRAM OXALATE 03/16/2020 1 2:00:00 AM EDT tablet 30 TAKE ONE TABLET BY MOUTH EVERY D AY TAKE ONE TABLET BY MOUTH EVERY DAY SOLD: 09/05/2020 [facility] 10 mg 02/21/2020 12:00:00 AM EDT tablet 30 TAKE ONE TABLET BY MOUTH EVERY DAY TAKE ONE TABLET BY MOUTH EVERY DAY SOLD: 08/25/2020 [facility] Insurance Providers Payer name Policy type / Coverage type Policy ID Covered alliance party ID Covered alliance party's relationship to [place] Policy [place] Plan Information BCBS [place] PPO [phone] [id number] SP [id number] HMO BLUE [id number] SP [id number] UNHC COMMUNITY PLAN MCDHMO [id number] SP [id number] UNHC COMMUNITY PLAN MCDHMO [id number] SP [id number] Medicaid S [id number] S [id number] Managed Care - [facility] P [id number] S [id number] UNHC COMMUNITY PLAN MCDHMO [id number] SP [id number] UNHC COMMUNITY PLAN MCDHMO [id number] SP [id number] Medicaid S [id number] S [id number] Managed Care - [facility] Community Plan P [id number] S [id number] [facility] Commercial Insurance Co. [id number] Self [id number] ANSI-Medicaid [id number] ANSI-Medicaid [id number] ANSI-Medicaid [id number] ANSI-Medicaid [id number] ANSI-Medicaid [id number] ANSI-Medicaid [id number] ANSI-Medicaid [id number] ANSI-Medicaid [id number] ANSI-Medicaid [id number] [facility] Kiera/MCR [facility] Part B [id number] Self [id number] [facility] Kiera/MCR Health Maintenance Organization ([facility]) [id number] Self [id number] [facility] Kiera/MCR Health Maintenance Organization ([facility] [place] [facility]) [id number] Self [id number] [employer] AMERICHOICE XIX O [id number] 18 [id number] MEDICAID-O/P [id number] BLUE CROSS BLUE SHIELD-CLINIC [id number] 18 [id number] BLUE CROSS BLUE SHIELD-O/P [id number] 18 [id number] BLUE CROSS BLUE SHIELD-CLINIC [id number] 18 [id number] BLUE CROSS BLUE SHIELD-O/P [id number] 18 [id number] UNHC COMMUNITY PLAN [facility] [id number] UNHC COMMUNITY PLAN MCDO [id number] SP [id number] Managed Care [facility] Community Plan P [id number] S [id number] [facility] O [id number] S [id number] ANSI-Medicaid [id number] Medicaid S UNAVAILABLE S UNAVAILA BLE Managed Care - [facility] P UNAVAILABLE S UNAVAILABLE ANSI-Medicaid [id number] [facility] [id number] Self [id number] [facility] Health Maintenance Organization (HMO) [id number] Self [id number] ANSI-Medicaid [id number] Problems, Conditions, and Diagnoses Code Display Name Description Problem Type Effective Dates Data Source(s) M72.2 [id number] Plantar fascial fibromatosis Problem 021 12:00:00 AM EST eCW1 ([facility]) E04.9 [id number] Enlarged thyroid gland Problem 11/30/2020 12 :00:00 AM EST eCW1 ([facility]) I10 [id number] Essential hypertension Problem 10/19/2020 12 :00:00 AM EST eCW1 ([facility]) Surgeries/Procedures Procedure Description Date Indications Data Source(s) ECG ROUTINE ECG W/LEAST 12 LDS W/I&R 10/19/2020 12:00: 00 AM EST eCW1 ([facility]) BRNCDILAT RSPSE SPMTRY PRE&POST-BRNCDILAT ADMN 020 12:00:00 AM EST MEDENT ([facility]) Results ID Date Data Source [id number] 10/10/2021 10:05:00 AM EST [facility] Name Value Range Interpretation Code Description Data Esther rce(s) Supporting Document(s) SARS-CoV-2 (COVID-19) RNA [Presence] in Respiratory specimen by ALESHA with probe detection Not Detected [facility] This lab was ordered by [facility] and reported by [employer]. ID Date Data Source [id number] 07/11/2021 12:00:00 AM EDT eCW1 ([facility]) Name Value Range Interpretation Code Description Data Esther rce(s) Supporting Document(s) Microalbumin/Creatinine [Mass Ratio] in Urine 116.0 CREATININE, URINE eCW1 ([facility]) Albumin/Creatinine [Mass Ratio] in Urine 46.5 MALB URINE SIEMENS eCW1 ([facility]) Microalbumin/Creatinine [Ratio] in Urine 40.0 0.0-30.0 MELISSA/CREAT RATIO eCW1 ([facility]) ID Date Data Source LIPID PANEL (CARDIAC RISK) 07/11/2021 12:00:00 AM EDT eCW1 ( [facility]) Name Value Range Interpretation Code Description Data Esther rce(s) Supporting Document(s) Cholesterol [Moles/volume] in Serum or Plasma 179 <200 CHOLESTEROL LEVEL eCW1 ([facility]) Triglyceride [Mass/volume] in Serum or Plasma by calculation 127 <150 TRIGLYCERIDES LEVEL eCW1 ([facility]) Cholesterol in HDL [Moles/volume] in Serum or Plasma 38 >40 HDL CHOLESTEROL eCW1 ([facility]) Cholesterol in LDL [Mass/volume] in Serum or Plasma by calculation 116 <100 LDL CHOLESTEROL eC ([facility]) 4.710 <5 CHOLESTEROL RISK RATIO eCW ([facility]) 141 NON-HDL-C eCW1 ([facility]) ID Date Data Source [id number] 07/11/2021 12:00:00 AM EDT eCW1 ([facility]) Name Value Range Interpretation Code Description Data Esther rce(s) Supporting Document(s) Hemoglobin A1c/Hemoglobin.total in Blood 5.8 HEMOGLOBIN A1c eCW1 ([facility]) ID Date Data Source FREE T4 & TSH PANEL 07/11/2021 12:00:00 AM EDT eCW1 ([facility]) Name Value Range Interpretation Code Description Data Esther rce(s) Supporting Document(s) 0.925 0.358-3.740 THYROID STIMULATING HORM ONE eCW1 ([facility]) 1.08 0.76-1.46 FREE T4 eCW1 ([facility]) ID Date Data Source Comprehensive Metabolic Profile (CMP) 07/11/2021 12:00:00 AM EDT eCW1 ([facility]) Name Value Range Interpretation Code Description Data Esther rce(s) Supporting Document(s) 93 70-100 GLUCOSE, FASTING eCW1 ([facility]) 10 7-18 BLOOD UREA NITROGEN eCW1 ([facility]) 0.71 0.55-1.30 CREATININE FOR GFR eCW1 ([facility]) > 60.0 >60 GLOMERULAR FILTRATION RATE eCW 1 ([facility]) 138 136-145 SODIUM LEVEL eCW1 ([facility]) 4.6 3.5-5.1 POTASSIUM SERUM eCW1 ([facility]) 107 98-107 CHLORIDE LEVEL eCW1 ([facility]) 9.0 8.5-10.1 CALCIUM LEVEL eCW1 ([facility]) 26 21-32 CARBON DIOXIDE LEVEL eCW1 ([facility]) 12 7-37 AST/SGOT eCW1 ([facility]) 34 12-78 ALT/SGPT eCW1 ([facility]) 87 45-117 ALKALINE PHOSPHATASE eCW1 ([facility]) 0.4 0.2-1.0 BILIRUBIN,TOTAL eCW1 ([facility]) 3.6 3.2-5.2 ALBUMIN eCW1 ([facility]) 7.0 6.4-8.2 TOTAL PROTEIN eCW1 ([facility]) 1.1 1.2-2.2 ALBUMIN/GLOBULIN RATIO eCW1 ([facility]) Procedure Social History Code Duration Value Status Description Data Source(s ) Smoking 09/26/2021 12:00:00 AM EST Never Smoker completed Never S moker eCW1 ([facility]) Smoking 08/14/2021 12:00:00 AM EDT Never Smoker completed Never S moker eCW1 ([facility]) Smoking 08/14/2021 12:00:00 AM EDT Never Smoker completed Never S moker eCW1 ([facility]) Smoking 08/14/2021 12:00:00 AM EDT Never Smoker completed Never S moker eCW1 ([facility]) Smoking 08/14/2021 12:00:00 AM EDT Never Smoker completed Never S moker eCW1 ([facility]) Smoking 07/19/2021 12:00:00 AM EDT Never Smoker completed Never S moker eCW1 ([facility]) Smoking 07/19/2021 12:00:00 AM EDT Never Smoker completed Never S moker eCW1 ([facility]) Smoking 04/04/2021 12:00:00 AM EDT Never Smoker completed Never S moker eCW1 ([facility]) Smoking 04/04/2021 12:00:00 AM EDT Never Smoker completed Never S moker eCW1 ([facility]) Smoking 11/30/2020 12:00:00 AM EST Never Smoker completed Never S moker eCW1 ([facility]) Smoking 11/30/2020 12:00:00 AM EST Never Smoker completed Never S moker eCW1 ([facility]) Smoking 11/30/2020 12:00:00 AM EST Never Smoker completed Never S moker eCW1 ([facility]) Smoking 10/19/2020 12:00:00 AM EST Never Smoker completed Never S moker eCW1 ([facility]) Smoking 10/19/2020 12:00:00 AM EST Never Smoker completed Never S moker eCW1 ([facility]) Smoking 10/19/2020 12:00:00 AM EST Never Smoker completed Never S moker eCW1 ([facility]) Smoking 10/19/2020 12:00:00 AM EST Never Smoker completed Never S moker eCW1 ([facility]) Smoking 09/12/2020 12:00:00 AM EST Patient has never smoked co mpleted Patient has never smoked MEDENT ([facility] ) Vital Signs ID Date Data Source UNK Name Value Range Interpretation Code Description Data Source(s) Body height 62.5 [in_i] 62.5 [in_i] eCW1 ([facility]) Body mass index (BMI) [Ratio] 49.96 kg/m2 49.96 kg/m2 eCW1 ([facility]) Body weight 277.6 [lb_av] 277.6 [lb_av] eCW1 ([facility]) Systolic blood pressure 126 mm[Hg] 126 mm[Hg] e CW1 ([facility]) Diastolic blood pressure 84 mm[Hg] 84 mm[Hg] eCW1 ([facility]) Body weight 273.6 [lb_av] 273.6 [lb_av] eCW1 ([facility]) Body height 62.5 [in_i] 62.5 [in_i] eCW1 ([facility]) Body mass index (BMI) [Ratio] 49.24 kg/m2 49.24 kg/m2 eCW1 ([facility]) Heart rate 85 /min 85 /min eCW1 ([facility]) Respiratory rate 18 /min 18 /min eCW1 ([facility]) Body temperature 97.8 [degF] 97.8 [degF] eCW1 ( [facility]) Systolic blood pressure 130 mm[Hg] 130 mm[Hg] e CW1 ([facility]) Diastolic blood pressure 80 mm[Hg] 80 mm[Hg] eCW1 ([facility]) Body weight 273 [lb_av] 273 [lb_av] eCW1 ([facility]) Body weight 123.83 kg 123.83 kg eCW1 ([facility]) Body height 62.5 [in_i] 62.5 [in_i] eCW1 ([facility]) Body mass index (BMI) [Ratio] 49.13 kg/m2 49.13 kg/m2 eCW1 ([facility]) Systolic blood pressure 118 mm[Hg] 118 mm[Hg] e CW1 ([facility]) Diastolic blood pressure 78 mm[Hg] 78 mm[Hg] eCW1 ([facility]) Body height 62.5 [in_i] 62.5 [in_i] eCW1 ([facility]) Body weight 274 [lb_av] 274 [lb_av] eCW1 ([facility]) Body mass index (BMI) [Ratio] 49.31 kg/m2 49.31 kg/m2 eCW1 ([facility]) Heart rate 87 /min 87 /min eCW1 ([facility]) Respiratory rate 18 /min 18 /min eCW1 ([facility]) Body temperature 98.7 [degF] 98.7 [degF] eCW1 ( [facility]) Systolic blood pressure 120 mm[Hg] 120 mm[Hg] e CW1 ([facility]) Diastolic blood pressure 82 mm[Hg] 82 mm[Hg] eCW1 ([facility]) Body weight 283.6 [lb_av] 283.6 [lb_av] eCW1 ([facility]) Body height 62.5 [in_i] 62.5 [in_i] eCW1 ([facility]) Body mass index (BMI) [Ratio] 51.04 kg/m2 51.04 kg/m2 eCW1 ([facility]) Heart rate 88 /min 88 /min eCW1 ([facility]) Respiratory rate 18 /min 18 /min eCW1 ([facility]) Body temperature 97.8 [degF] 97.8 [degF] eCW1 ( [facility]) Systolic blood pressure 110 mm[Hg] 110 mm[Hg] e CW1 ([facility]) Diastolic blood pressure 72 mm[Hg] 72 mm[Hg] eCW1 ([facility]) Body weight 293.8 [lb_av] 293.8 [lb_av] eCW1 ([facility]) Respiratory rate 18 /min 18 /min eCW1 ([facility]) Body height 62.5 [in_i] 62.5 [in_i] eCW1 ([facility]) Body mass index (BMI) [Ratio] 52.87 kg/m2 52.87 kg/m2 eCW1 ([facility]) Heart rate 101 /min 101 /min eCW1 ([facility]) Body temperature 98.1 [degF] 98.1 [degF] eCW1 ( [facility]) Systolic blood pressure 150 mm[Hg] 150 mm[Hg] e CW1 ([facility]) Diastolic blood pressure 90 mm[Hg] 90 mm[Hg] eCW1 ([facility]) Body height 63 [in_i] 63 [in_i] MEDENT ([facility] 5'3" Heart rate 71 /min 71 /min MEDENT ([facility] Respiratory rate 18 /min 18 /min MEDENT ( [facility]) Systolic blood pressure 148 mm[Hg] 148 mm[Hg] M EDENT ([facility]) Diastolic blood pressure 92 mm[Hg] 92 mm[Hg] MEDENT ([facility]) Body mass index (BMI) [Ratio] 52.1 kg/m2 52.1 k g/m2 MEDENT ([facility]) Body weight 294.00 [lb_av] 294.00 [lb_av] MEDEN T ([facility]) Patient Treatment Plan of Care Planned Activity Planned Date Details Description Data Source (s) Steglatro 5 MG 10/19/2020 12:00:00 AM EST eCW1 ([facility]) Steglatro 15 MG 10/19/2020 12:00:00 AM EST eCW1 ([facility]) Lisinopril 10 MG Oral Tablet 10/19/2020 12:00:00 AM EST eCW1 ([facility]) Steglatro 5 MG 10/19/2020 12:00:00 AM EST eCW1 ([facility]) Steglatro 15 MG 10/19/2020 12:00:00 AM EST eCW1 ([facility]) Lisinopril 10 MG Oral Tablet 10/19/2020 12:00:00 AM EST eCW1 ([facility]) Steglatro 5 MG 10/19/2020 12:00:00 AM EST eCW1 ([facility]) Steglatro 15 MG 10/19/2020 12:00:00 AM EST eCW1 ([facility]) Lisinopril 10 MG Oral Tablet 10/19/2020 12:00:00 AM EST eCW1 ([facility]) Steglatro 5 MG 10/19/2020 12:00:00 AM EST eCW1 ([facility]) Steglatro 15 MG 10/19/2020 12:00:00 AM EST eCW1 ([facility]) Lisinopril 10 MG Oral Tablet 10/19/2020 12:00:00 AM EST eCW1 ([facility]) Steglatro 15 MG 10/19/2020 12:00:00 AM EST eCW1 ([facility])
[2021-10-15] MEDS ORDERED: propofoL 200 MG/20 ML VIAL As Ordered ONE (07:13)
[2021-10-15] MEDS ORDERED: ROCURONIUM BROMIDE 50 MG/5 ML VIAL As Ordered ONE (07:13)
[2021-10-15] MEDS ORDERED: BUPIVACAINE HCL 0.25% 30ML VIAL As Ordered ONE (07:13)
[2021-10-15] MEDS ORDERED: LIDOCAINE 2% 100MG/5ML SDV (FOR ANES.) As Ordered ONE (07:13)
[2021-10-15] MEDS ORDERED: MIDAZOLAM INJ 2MG/2ML VIAL (J2250 PER 1MG) As Ordered ONE (07:13)
[2021-10-15] MEDS ORDERED: fentaNYL 250 MCG/5 ML INJECTION (J3010) As Ordered ONE (07:13)
[2021-10-15 07:19] LABS: HEMOGLOBIN 15.8 g/dl (12.0-15.5); MEAN CORPUSCULAR HEMOGLOBIN 28.5 pg (27.0-33.0); MEAN CORPUSCULAR HGB CONC 32.9 g/dl (32.0-36.5); MEAN CORPUSCULAR VOLUME 86.5 fl (80.0-96.0); PLATELET COUNT, AUTOMATED 259 10^3/uL (150-450); RED BLOOD COUNT 5.55 10^6/uL (4.00-5.40); WHITE BLOOD COUNT 8.1 10^3/uL (4.0-10.0)
[2021-10-15] MEDS ORDERED: SCOPOLAMINE 1MG TRANSDERMAL PATCH TOP ONE (07:30)
[2021-10-15] MEDS ORDERED: diphenhydrAMINE 50MG/ML VIAL (J1200) As Ordered ONE (08:00)
[2021-10-15] MEDS ORDERED: dexameTHASONE 4 MG/ML 1ML VIAL (J1100 PER 1MG) As Ordered ONE (08:00)
[2021-10-15] MEDS ORDERED: ONDANSETRON 4MG/2ML VIAL As Ordered ONE (08:00)
[2021-10-15] MEDS ORDERED: METOCLOPRAMIDE INJ 10MG/2ML VIAL (J2765 PER 1) As Ordered ONE (08:00)
[2021-10-15] MEDS ORDERED: ACETAMINOPHEN 1000MG 100ML IV BTL (OFIRMEV) (J0131 PER 10MG) As Ordered ONE (08:01)
[2021-10-15] MEDS ORDERED: SUGAMMADEX SODIUM 500 MG/5 ML VIAL (BRIDION) As Ordered ONE (08:07)
[2021-10-15] MEDS ORDERED: METOCLOPRAMIDE INJ 10MG/2ML VIAL (J2765 PER 1) IV PRN (09:05)
[2021-10-15] MEDS ORDERED: LR 1,000 ML IV SCH (09:05)
[2021-10-15] MEDS ORDERED: ONDANSETRON 4MG/2ML VIAL IV PRN (09:05)
[2021-10-15] MEDS ORDERED: fentaNYL 100 MCG/2 ML INJECTION (J3010) IV PRN (09:05)
--- NOTE | 2021-10-15 09:13 | ROOPDOC ---
[facility] Report Of Operation Report of Operation DATE OF OPERATION: 10/15/2021 PREOPERATIVE DIAGNOSIS: Seeking permanent sterilization. POSTOPERATIVE DIAGNOSIS: Seeking permanent sterilization. PROCEDURE PERFORMED: Laparoscopic bilateral salpingectomy. SURGEON: Kitty Jaimes MD ASSISTENT: Dr. Manohar Mccann ANESTHESIA: general ET IVF: 1000 cc crystalloid UOP: 450 cc clear yellow urine EBL: 5 cc SPECIMENS: bilateral fallopian tubes SUMMARY OF SIGNIFICANT FINDINGS: Normal appearing uterus, tubes, and ovaries. Grossly normal abdominal survey. Adequate hemostasis noted. DESCRIPTION OF PROCEDURE: After informed consent was obtained, the patient was taken to the operating suite and placed under general anesthesia. The patient was placed in the dorsal lithotomy position. Patient appropriately prepped and draped in the normal sterile fashion. A sams catheter was inserted and draining clear yellow urine. A sterile speculum was inserted into the vagina and the cervix clearly visualized. A single tooth tenaculum was used to grasp the anterior lip of the cervix. The cervical os was progressively dilated with lozano dilators to accomidate the uterine manipulator. The uterus was sounded to 7cm and the uterine manipulator was placed. All instruments were removed from the vagina with adequate hemostasis noted at the tenaculum site. Attention was then turned to the abdomen. A vertical incision was made through the umbilicus to accomodate a 5mm port. Entry was made with trocar under direct visualization with the laporoscopic camera. Once intraperitoneal placement was confirmed, pneumoperitoneum was started. Opening pressure was 3 mmHg, so high flow was obtained and pneumoperitoneum was easily obtained. Once pneumoperitoneum was obtained, a second and third 5mm port were placed under direct visualization to the left and right of the umbilical port. The [place] ent was placed in Trendelenburg position, revealed pelvic structures. Attention was first turned the right fallopian tube which was removed with a Ligasure and amputated at the right cornua. The right fallopian tube was removed through the port. Attention was then turned to the left fallopian tube which was removed in the same manor. Once adequate hemostasis was noted from the operative sites, pneumoperitoneum was deflated and all trocars were removed. The skin was closed with 4-0 monocryl. The sams catheter and uterine manipulator were removed. Sponge, lap and needle counts were correct x2. The patient was taken to the recovery room in stable condition. KITTY JAIMES MD Oct 15, 2021 09:13
[2021-10-15] MEDS ORDERED: ALBUTEROL SULFATE 2.5 MG/0.5 ML INH NEB SOLN INH ONE (09:20)
[2021-10-15] MEDS: oxyCODONE 5MG TAB PO PRN ×2 (09:35→10:05)
[2021-10-15 11:20] VITALS: BP 102/59
[2021-10-15] MEDS ORDERED: ACETAMINOPHEN 500 MG TAB PO SCH (14:00)
[2021-10-15] MEDS ORDERED: IBUPROFEN 600MG TAB PO SCH (16:00)
== END 2021-10-15 11:20 | disposition home or self-care (01) ==
LOC: M SDC 06:14
PROVIDERS: ATTEND Obstetrics & Gynecology
DX: Z30.2 Encounter for sterilization (principal); I10 Essential (primary) hypertension; E11.9 Type 2 diabetes mellitus without complications; F41.9 Anxiety disorder, unspecified; F32.9 Major depressive disorder, single episode, unspecified; Z79.899 Other long term (current) drug therapy; J45.909 Unspecified asthma, uncomplicated
CPT/HCPCS: 36415; 58661; 81025; 85027; 86850; 86900; 86901; 88302; J0131; J1100; J1200; J2250; J2405; J2765; J3010

== ENCOUNTER → 2022-01-25 | Outpatient (REF) ==
[~2022-01-25] MED LIST changes: -LR 1,000 ML IV ONE
== END ==
LOC: M LABSMTC 09:15
PROVIDERS: ATTEND Family Medicine
DX: Z20.822 Contact with and (suspected) exposure to COVID-19 (principal)

== ENCOUNTER → 2022-03-16 | Outpatient (CLI) | payer OTHER | LOC: M LABSMTC 10:30 | PROVIDERS: ATTEND Family Medicine | DX: Z20.822 Contact with and (suspected) exposure to COVID-19 (principal) | CPT/HCPCS: 87426; C9803 ==

== ENCOUNTER → 2022-03-21 | Outpatient (REF) | LOC: M LABSMTC 10:27 | PROVIDERS: ATTEND Family Medicine | DX: Z20.828 Contact with and (suspected) exposure to other viral communicable diseases (principal) ==

== ENCOUNTER → 2022-09-13 | Outpatient (REF) | payer OTHER | LOC: M PLALAB 16:44 | PROVIDERS: ATTEND Obstetrics & Gynecology | DX: Z12.4 Encounter for screening for malignant neoplasm of cervix (principal); N76.0 Acute vaginitis; R87.610 Atypical squamous cells of undetermined significance on cytologic smear of cervix (ASC-US) ==

== ENCOUNTER → 2022-10-16 | Outpatient (REF) | payer OTHER ==
[2022-10-16 18:46] LABS: ALKALINE PHOSPHATASE 88 U/L (46-116); ALT/SGPT 23 U/L (7.0-40); AST/SGOT 12 U/L (<34); BILIRUBIN,TOTAL 0.3 MG/DL (0.3-1.2); BLOOD UREA NITROGEN 17 MG/DL (9-23); CALCIUM LEVEL 9.4 MG/DL (8.5-10.1); CARBON DIOXIDE LEVEL 21 MMOL/L (20-31); CHLORIDE LEVEL 104 MMOL/L (98-107); CHOLESTEROL LEVEL 154 MG/DL (<200); CREATININE FOR GFR 0.63 MG/DL (0.55-1.30); GLOMERULAR FILTRATION RATE > 60.0 (>60); GLUCOSE, FASTING 110 MG/DL (60-100); HDL CHOLESTEROL 40.5 MG/DL (>40); LDL CHOLESTEROL 79.5 MG/DL (<100); NON-HDL-C 114 MG/DL; POTASSIUM SERUM 4.6 MMOL/L (3.5-5.1); SODIUM LEVEL 135 MMOL/L (136-145); TOTAL 25(OH) VITAMIN D 27.1 NG/ML (20.0-100.0); TOTAL PROTEIN 7.4 G/DL (5.7-8.2); TRIGLYCERIDES LEVEL 170 MG/DL (<150)
[2022-10-16 19:10] LABS: HIV 1&2 SCREEN CENTAUR NEGATIVE (NEGATIVE)
[2022-10-16 19:19] LABS: HEPATITIS C VIRUS ABY INDEX 0.2 INDEX (<0.8)
[2022-10-16 23:31] LABS: HEMOGLOBIN A1c 5.8 % (4.0-6.0)
== END ==
LOC: M LAB REF 17:37
PROVIDERS: ATTEND Nurse Practitioner Family
DX: E11.9 Type 2 diabetes mellitus without complications (principal); I10 Essential (primary) hypertension; Z13.228 Encounter for screening for other metabolic disorders; Z11.9 Encounter for screening for infectious and parasitic diseases, unspecified

== ENCOUNTER → 2023-01-13 | Outpatient (CLI) | payer OTHER ==
[~2023-01-13] MED LIST changes: +ALBU8.5H INH; +SERT25TA21 PO; +SERT50TA29 PO
== END ==
LOC: M LABSMTC 08:43
PROVIDERS: ATTEND Anesthesiology
DX: Z01.812 Encounter for preprocedural laboratory examination (principal)

== ENCOUNTER 2023-01-16 07:45 | Day surgery (SDC) | payer OTHER ==
[~2023-01-16] VITALS: Ht 160 cm; Wt 133.4 kg
[~2023-01-16 07:45] MED LIST changes: +KETOROLAC 60MG 2ML VIAL As Ordered ONE; +LIDOCAINE 2% 100MG/5ML SDV (FOR ANES.) As Ordered ONE; +MIDAZOLAM INJ 2MG/2ML VIAL As Ordered ONE; +ONDANSETRON 4MG 2ML VIAL As Ordered ONE; +ROCURONIUM BROMIDE 50MG/5ML VIAL As Ordered ONE; +SUGAMMADEX SODIUM 500 MG/5 ML VIAL (BRIDION) As Ordered ONE; +ceFAZolin SOD 2 GM in IV 1 EA IV ONE; +fentaNYL 100 MCG/2 ML INJECTION As Ordered ONE; +propofoL 200 MG/20 ML VIAL As Ordered ONE
[2023-01-16] MEDS ORDERED: LR 1,000 ML IV SCH ×2 (08:15→11:00)
[2023-01-16] MEDS ORDERED: BUPIVACAINE/EPIN 0.25% 30ML VIAL As Ordered ONE (09:16)
[2023-01-16] MEDS ORDERED: ceFAZolin 1GM VIAL As Ordered ONE (09:34)
[2023-01-16] MEDS ORDERED: fentaNYL 100 MCG/2 ML INJECTION As Ordered ONE (10:25)
[2023-01-16] MEDS ORDERED: propofoL 200 MG/20 ML VIAL As Ordered ONE (10:29)
[2023-01-16] MEDS ORDERED: ALBUTEROL 6.7GM INHALER **FOR ANES. CART/OMNICELL ONLY As Ordered ONE (10:47)
[2023-01-16] MEDS ORDERED: fentaNYL 100 MCG/2 ML INJECTION IV PRN (11:00)
[2023-01-16] MEDS ORDERED: HYDROMORPHONE HCL 0.5 MG/ 0.5 ML SYRINGE IV PRN (11:00)
[2023-01-16] MEDS ORDERED: oxyCODONE 5MG TAB PO PRN (11:00)
[2023-01-16] MEDS ORDERED: ONDANSETRON 4MG 2ML VIAL IV PRN (11:00)
[2023-01-16] MEDS ORDERED: ONDANSETRON 4MG 2ML VIAL As Ordered ONE (11:05)
[2023-01-16] MEDS ORDERED: NORCO, ANEXSIA 5/325MG TABLET (HYDROcodone/ACETAMINOPHEN) PO PRN (11:30)
[2023-01-16 12:42] VITALS: BP 118/56
== END 2023-01-16 13:30 | disposition home or self-care (01) ==
LOC: M SDC 07:45
PROVIDERS: ATTEND Surgery
DX: K42.9 Umbilical hernia without obstruction or gangrene (principal); I10 Essential (primary) hypertension; J45.909 Unspecified asthma, uncomplicated; Z79.51 Long term (current) use of inhaled steroids; F41.9 Anxiety disorder, unspecified; F32.A Depression, unspecified; Z79.899 Other long term (current) drug therapy
CPT/HCPCS: 49591; C1781; J0690; J1100; J2250; J2405; J3010; S2900

== ENCOUNTER → 2023-01-30 | Outpatient (REF) | payer OTHER ==
[~2023-01-30] MED LIST changes: -KETOROLAC 60MG 2ML VIAL As Ordered ONE; -LIDOCAINE 2% 100MG/5ML SDV (FOR ANES.) As Ordered ONE; -MIDAZOLAM INJ 2MG/2ML VIAL As Ordered ONE; -ONDANSETRON 4MG 2ML VIAL As Ordered ONE; -ROCURONIUM BROMIDE 50MG/5ML VIAL As Ordered ONE; -SUGAMMADEX SODIUM 500 MG/5 ML VIAL (BRIDION) As Ordered ONE; -ceFAZolin SOD 2 GM in IV 1 EA IV ONE; -fentaNYL 100 MCG/2 ML INJECTION As Ordered ONE; -propofoL 200 MG/20 ML VIAL As Ordered ONE
[2023-01-30 15:06] LABS: CREATININE, URINE 41.4 MG/DL; MAU/CREAT RATIO 9.6 MCG/MG (0.0-30.0)
== END ==
LOC: M LAB REF 11:59
PROVIDERS: ATTEND Nurse Practitioner Family
DX: E11.9 Type 2 diabetes mellitus without complications (principal)

== ENCOUNTER → 2023-09-16 | Outpatient (REF) | payer OTHER ==
[~2023-09-16] MED LIST changes: +FLUT50SP17 INH; -FLUTISP INH; +LORA-1041 PO; -LORA-674 PO
[2023-09-16 16:53] LABS: CHLAMYDIA DNA AMPLIFICATION NEGATIVE (NEGATIVE); GC DNA AMPLIFICATION NEGATIVE (NEGATIVE)
== END ==
LOC: M PLALAB 11:31
PROVIDERS: ATTEND Obstetrics & Gynecology
DX: Z12.4 Encounter for screening for malignant neoplasm of cervix (principal); Z20.2 Contact with and (suspected) exposure to infections with a predominantly sexual mode of transmission; R87.5 Abnormal microbiological findings in specimens from female genital organs

== ENCOUNTER → 2023-09-23 | Outpatient (REF) | payer OTHER ==
[2023-09-23 13:23] LABS: HEMOGLOBIN A1c 6.2 % (4.0-6.0)
== END ==
LOC: M LAB REF 12:28
PROVIDERS: ATTEND Nurse Practitioner Family
DX: R73.9 Hyperglycemia, unspecified (principal)

== ENCOUNTER 2024-02-06 10:25 | Emergency (ER) | payer OTHER ==
[~2024-02-06] VITALS: Ht 160 cm; Wt 136.7 kg
[~2024-02-06 10:25] MED LIST changes: -FLUT50SP17 INH; +FLUTISP INH
[2024-02-06 10:27] VITALS: BP 139/90; TEMP 97.7; O2SAT 98
[2024-02-06] MEDS ORDERED: ACET-683 PO (10:38)
[2024-02-06] MEDS ORDERED: IBUP-1022 PO ×2 (10:38→13:45)
[2024-02-06] MEDS: predniSONE 20 MG TAB PO ONE (11:43)
[2024-02-06] MEDS: methocarbamoL 500 MG TAB PO ONE (11:43)
[2024-02-06] MEDS: KETOROLAC 60MG 2ML VIAL IM ONE (11:44)
[2024-02-06] MEDS ORDERED: METH-1164 PO (13:45)
[2024-02-06] MEDS ORDERED: PRED20TA PO (13:45)
== END 2024-02-06 13:53 | disposition home or self-care (01) ==
LOC: M ED 11:14
DX: M54.50 Low back pain, unspecified (principal); I10 Essential (primary) hypertension; Z79.899 Other long term (current) drug therapy
CPT/HCPCS: 72110; 96372; 99282; J1885; J7512

== ENCOUNTER → 2024-09-07 | Outpatient (REF) | payer OTHER ==
[~2024-09-07] MED LIST changes: +ACET-683 PO; +IBUP-1022 PO; +METH-1164 PO; +PRED20TA PO
[2024-09-07 13:58] LABS: CREATININE, URINE 64.6 MG/DL; MAU/CREAT RATIO 20.1 MCG/MG (0.0-30.0)
[2024-09-07 16:11] LABS: BLOOD UREA NITROGEN 16 MG/DL (9-23); CALCIUM LEVEL 9.4 MG/DL (8.5-10.1); CARBON DIOXIDE LEVEL 26 MMOL/L (20-31); CHLORIDE LEVEL 106 MMOL/L (98-107); CHOLESTEROL LEVEL 166 MG/DL (<200); CHOLESTEROL RISK RATIO 4.43 (<5); CREATININE FOR GFR 0.61 MG/DL (0.55-1.30); GLOMERULAR FILTRATION RATE > 60.0 (>60); GLUCOSE, FASTING 134 MG/DL (60-100); HDL CHOLESTEROL 37.4 MG/DL (>40); LDL CHOLESTEROL 73.2 MG/DL (<100); NON-HDL-C 128.6 MG/DL; POTASSIUM SERUM 4.6 MMOL/L (3.5-5.1); SODIUM LEVEL 137 MMOL/L (136-145); TRIGLYCERIDES LEVEL 277 MG/DL (<150)
[2024-09-07 16:15] LABS: THYROID STIMULATING HORMONE 1.292 uIU/ML (0.55-4.78)
[2024-09-07 16:16] LABS: FREE T4 1.18 NG/DL (0.89-1.76)
[2024-09-07 17:29] LABS: HEMOGLOBIN A1c 6.8 % (4.0-6.0)
== END ==
LOC: M LAB REF 13:00
PROVIDERS: ATTEND Nurse Practitioner Family
DX: E11.9 Type 2 diabetes mellitus without complications (principal); Z68.43 Body mass index [BMI] 50.0-59.9, adult

== ENCOUNTER → 2024-12-22 | Outpatient (REF) | payer OTHER ==
[2024-12-22 17:56] LABS: HEMOGLOBIN A1c 6.3 % (4.0-6.0)
== END ==
LOC: M LAB REF 16:46
PROVIDERS: ATTEND Nurse Practitioner Family
DX: E11.9 Type 2 diabetes mellitus without complications (principal)

== ENCOUNTER → 2024-12-22 | Outpatient (REF) | payer OTHER ==
[2024-12-22 19:53] LABS: Trichomonas vaginalis (AMP) NOT DETECTED (NEGATIVE)
[2024-12-22 20:17] LABS: GC DNA AMPLIFICATION NEGATIVE (NEGATIVE)
== END ==
LOC: M PLALAB 16:23
PROVIDERS: ATTEND Obstetrics & Gynecology
DX: Z01.419 Encounter for gynecological examination (general) (routine) without abnormal findings (principal)

== ENCOUNTER → 2024-12-23 | Outpatient (REF) | payer OTHER | LOC: M SFHCDERM 13:36 | PROVIDERS: ATTEND Nurse Practitioner Family | DX: D17.23 Benign lipomatous neoplasm of skin and subcutaneous tissue of right leg (principal) ==